=== PATIENT | male | born 1940 | race Caucasian/White ===

== ENCOUNTER 2017-09-20 01:01 | Emergency (ER) | payer OTHER, MEDICARE ==
[~2017-09-20] VITALS: Ht 177.8 cm; Wt 93.4 kg
[~2017-09-20 01:01] MED LIST: ASCORBIC ACID500 M3 PO; ASPIR 8181 M1 PO; ATENOLOL50 MG PO; BISOPROLOL-HCT1 EAC2 PO; DAILY VITAMIN1 EAC4 PO; ENZYMATIC DIGE1 EACH PO; FISH OIL300 MG PO; FLAX OIL1000 MG PO; FLAXSEED OIL1000 M4 PO; LIPITOR10 MG PO; LISINOPRIL10 MG PO; METFORMIN HCL1000 MG PO; METFORMIN HCL500 MG PO; METHOCARBAMOL500 MG PO; MULTI VITAMIN1 EACH PO; PLAVIX75 MG PO; VITAMIN B-12250 MC2 PO
[2017-09-20 02:03] VITALS: BP 156/83
== END 2017-09-20 02:04 | disposition home or self-care (01) ==
LOC: EME 01:01
DX: H57.12 Ocular pain, left eye (principal); I10 Essential (primary) hypertension; E11.9 Type 2 diabetes mellitus without complications; Z87.891 Personal history of nicotine dependence; Z79.84 Long term (current) use of oral hypoglycemic drugs; Z79.82 Long term (current) use of aspirin; Z88.0 Allergy status to penicillin
CPT/HCPCS: 82948; 99281; 99283